=== PATIENT | male | born 2000 | race Caucasian/White ===

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

== ENCOUNTER 2021-09-09 19:55 | Emergency (ER) | payer BC | END 2021-09-09 23:00 | disposition home or self-care (01) | LOC: JP.ED 19:55 | DX: S62.302A Unspecified fracture of third metacarpal bone, right hand, initial encounter for closed fracture (principal); W18.30XA Fall on same level, unspecified, initial encounter | CPT/HCPCS: 29125; 73130-26-RT; 73130-RT; 99281; 99283 ==